=== PATIENT | female | born 1970 | race Caucasian/White ===

== ENCOUNTER 2020-01-25 11:19 | Emergency (ER) | payer OTHER ==
[2020-01-25 11:31] VITALS: BP 125/68; PULSE 59; TEMP 97; BMI 21.2
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
[2020-01-25] MEDS ORDERED: IBUPROFEN 600 MG TABLET (FP) PO ONE ×2 (12:33→12:34)
== END 2020-01-25 12:36 | disposition home or self-care (01) ==
LOC: JERFT 11:19
DX: S63.502A Unspecified sprain of left wrist, initial encounter (principal); S93.602A Unspecified sprain of left foot, initial encounter
CPT/HCPCS: 73110-TC-LT-FY; 73630-TC-LT; 99284-25